=== PATIENT | male | born 2000 | race African-American/Black ===

== ENCOUNTER 2020-07-16 23:07 | Emergency (ER) | payer SELFPAY ==
[~2020-07-16] VITALS: Ht 160 cm; Wt 93.0 kg
[2020-07-16] MEDS ORDERED: CYCLOBENZAPRINE5 MG PO (23:31)
[2020-07-16] MEDS ORDERED: PREDNISONE20 MG PO (23:31)
--- NOTE | 2020-07-16 23:32 | Emergency Department Note ---
History of Present Illnes History of Present Illness Chief Complaint: low Back Pain while lifting boxes on new [employer] job History of Present Illness This is a 19 year old male . Historian: Patient Arrival Mode: Car History limited by: condition of the patient (normal) Ice Skating Instructor Required: No Onset (how long ago): day(s) (2) Location: see above Quality: sharp Radiation: Reports non-radiation Severity: moderate Onset quality: gradual Duration (how long): day(s) (2) Timing of current episode: constant Progression: worsening Chronicity: new Context: Reports trauma/injury; Denies recent illness, Denies recent surgery, Denies recent immobilization, Denies recent travel, Denies new medications, Denies hx of DVT/PE, Denies non- compliance w/ medications Relieving factors: rest Exacerbating factors: movement Associated symptoms: Reports denies other symptoms Treatments prior to arrival: none Past Medical/Family History Physician Review I have reviewed the patient's past medical and family history. Any updates have been documented here. Past Medical History Recent Fever: No Clinical Suspicion of Infectio: No New/Unexplained Change in Ment: No Past Medical History: None Past Surgical History: None Social History Smoking Cessation: Never Smoker Counseling Performed: No Alcohol Use: Occasional Any Illegal Drug Use: No Physically hurt or threatened: No Other Any Pre-Existing Lines (PICC,: No Review of Systems Review of Systems Constitutional: Reports no symptoms EENTM: Reports no symptoms Cardiovascular: Reports no symptoms Respiratory: Reports no symptoms Gastrointestinal: Reports no symptoms Genitourinary: Reports no symptoms Musculoskeletal: Reports as per HPI Integumentary: Reports no symptoms Neurological: Reports no symptoms Psychological: Reports no symptoms Endocrine: Reports no symptoms Hematological/Lymphatic: Reports no symptoms Review of other systems: All other systems negative Physical Exam Related Data Triage Vital Signs Vital Signs Date Time Temp Pulse Resp B/P (MAP) Pulse Ox O2 Delivery O2 Flow Rate FiO2 07/16/20 23:18 98.9 83 17 133/74 99 Vital signs reviewed: Yes Physical Exam CONSTITUTIONAL Constitutional: Present well-developed, Present well-nourished HENT HENT: Present normocephalic, Present atraumatic, Present oropharynx william r/moist, Present nose normal HENT L/R: Present left ext ear normal, Present right ext ear normal EYES Eyes: Reports PERRL, Reports conjunctivae normal NECK Neck: Present ROM normal PULMONARY Pulmonary: Present effort normal, Present breath sounds normal CARDIOVASCULAR Cardiovascular: Present regular rhythm, Present heart sounds normal, Present capillary refill normal, Present normal rate GASTROINTESTINAL Abdominal: Present soft, Present nontender, Present bowel sounds normal GENITOURINARY Genitourinary: Present exam deferred SKIN Skin: Present warm, Present dry MUSCULOSKELETAL Musculoskeletal: Present ROM normal, Present other (+low back muscle spasms) NEUROLOGICAL Neurological: Present alert, Present oriented x 3, Present no gross motor or sensory deficits PSYCHOLOGICAL Psychological: Present mood/affect normal, Present judgement normal Assessment & Plan Medical Decision Making MDM back strain Assessment & Plan Final Impression: (1) Low back strain Depart Disposition: HOME, SELF-CARE Last Vital Signs Date Time Temp Pulse Resp B/P (MAP) Pulse Ox O2 Delivery O2 Flow Rate FiO2 07/16/20 23:18 98.9 83 17 133/74 99 Home Meds Active Scripts Cyclobenzaprine Hcl (FLEXERIL) 5 Mg Tablet, 10 MG PO Q8H PRN for MUSCLE SPASMS, #30 TAB take after prednisone to control pain if need be Prov:MICHAELLE HENLEY 07/16/20 Prednisone (PREDNISONE) 20 Mg Tab, 80 MG PO DAILY PRN for MODERATE PAIN (4-6), #20 TAB take all 4 20 mg pills at once Prov:MICHAELLE HENLEY 07/16/20 MICHAELLE HENLEY Jul 16, 2020 23:32
== END 2020-07-16 23:39 | disposition home or self-care (01) ==
LOC: FSED 23:15
DX: S39.012A Strain of muscle, fascia and tendon of lower back, initial encounter (principal); X50.0XXA Overexertion from strenuous movement or load, initial encounter; Y99.0 Civilian activity done for income or pay
CPT/HCPCS: 99282